=== PATIENT | female | born 1950 | race Caucasian/White ===

== ENCOUNTER 2022-11-17 10:15 | Emergency (ER) | payer OTHER ==
[2022-11-17] MEDS ORDERED: AMOX/K CLAV875 M1 PO (12:31)
[2022-11-17 12:44] VITALS: BP 179/97
== END 2022-11-17 12:55 | disposition home or self-care (01) | DRG 603 ==
LOC: ED 10:15
DX: L03.012 Cellulitis of left finger (principal)